=== PATIENT | male | born 1980 | race Two or more races ===

== ENCOUNTER 2024-12-20 15:17 | Inpatient (IN) | payer OTHER, MEDICAID ==
[2024-12-20] VITALS (7 sets, daily range): BP systolic 118–130; BP diastolic 80–94; PULSE 106–117; RESP 12–14; TEMP 37.4; O2SAT 98–99
[~2024-12-20] VITALS: Ht 160 cm; Wt 64.0 kg
[2024-12-20] MEDS: SODIUM CHLORIDE 0.9% (SEPSIS BOLUS) IV ONE (16:11)
[2024-12-20] MEDS: MORPHINE SULFATE 4 MG/ML INJ (FOR IV/IM USE) IV STA (16:18)
[2024-12-20] MEDS: ACETAMINOPHEN 325MG TABLET PO STA (16:18)
[2024-12-20] MEDS: ONDANSETRON HCL 4MG/2ML INJ IV STA (16:18)
[2024-12-20] MEDS: PIPERACILLIN/TAZO 3.375G/50ML 50 ML IV ONE (16:19)
[2024-12-20] MEDS: VANCOMYCIN 1G PREMIX 200 ML IV ONE (16:19)
[2024-12-20 16:44] LABS: MEAN CORPUSCULAR HEMOGLOBIN 31.1 pg (28.0-32.0); MEAN CORPUSCULAR HGB CONC 35.1 g/dL (31.0-37.0); MEAN CORPUSCULAR VOLUME 88.5 fL (80.0-94.0); PLATELET 644 x1000/uL (130-400); RED BLOOD CELL COUNT 4.18 mill/uL (4.7-6.1); RED CELL DISTRIBUTION WIDTH 12.3 % (11.6-14.6); WHITE BLOOD COUNT 13.1 x1000/uL (4.5-11.0)
[2024-12-20 16:47] LABS: DIFFERENTIAL COMMENT 1
[2024-12-20 16:52] LABS: BG DEOXYHEMOGLOBIN 2.7 % (0.0-5.0)
[2024-12-20 16:54] LABS: CHLORIDE 93 mEq/L (98-107); POTASSIUM 3.8 mEq/L (3.5-5.1); SODIUM 126 mEq/L (136-145)
[2024-12-20 16:55] LABS: CALCIUM 9.2 mg/dL (8.7-10.4); CARBON DIOXIDE 17 mEq/L (21-32)
[2024-12-20 17:00] LABS: CREATININE 1.2 mg/dL (0.6-1.3); UREA NITROGEN BLOOD 10 mg/dL (9-23)
[2024-12-20 17:01] LABS: PROTHROMBIN TIME 10.3 sec (9.6-11.0); TROPONIN I HIGH SENSITIVITY 8 ng/L (3.0-53)
[2024-12-20 17:06] LABS: GLUCOSE 484 mg/dL (70-105)
[2024-12-20 17:18] LABS: BETA HYDROXYBUTYRATE 5.8 mMol/L (0.0-0.3)
[2024-12-20 17:41] LABS: PLATELET ESTIMATE MARKEDLY INCREASED
[2024-12-20 18:45] LABS: TROPONIN I HIGH SENSITIVITY 7 ng/L (3.0-53)
[2024-12-20] MEDS ORDERED: INSULIN REGULAR (DRIP) 100 UNITS in SODIUM CHLORIDE 0.9% 99 ML IV SCH (19:15)
[2024-12-20] MEDS ORDERED: DEXTROSE 50% WATER 50ML SYRINGE IV PRN ×3 (19:15→21:15)
[2024-12-20] MEDS ORDERED: DEXT 5%/0.9% NACL 1,000 ML IV SCH (19:15)
[2024-12-20] MEDS ORDERED: KCL 20MEQ/100ML PREMIX 100 ML IV PRN (19:15)
[2024-12-20] MEDS ORDERED: SODIUM PHOSPHATE 15 MMOL in SODIUM CHLORIDE 0.9% 245 ML IV PRN (19:15)
[2024-12-20] MEDS: BLOOD SUGAR DIAGNOSTIC STRIP TEST SCH ×2 (19:15→20:15)
[2024-12-20] MEDS ORDERED: POTASSIUM CHLORIDE 40 MEQ in SODIUM CHLORIDE 0.9% 230 ML IV PRN ×2 (19:15→20:15)
[2024-12-20] MEDS ORDERED: MAGNESIUM 2 G PREMIX 50 ML IV PRN (19:15)
[2024-12-20] MEDS: SODIUM CHLORIDE 0.9% 1,000 ML IV SCH (19:15)
[2024-12-20] MEDS ORDERED: BLOOD SUGAR DIAGNOSTIC STRIP TEST PRN ×2 (19:15→20:15)
[2024-12-20 20:01] LABS: CLARITY URINE CLEAR (CLEAR); COLOR URINE YELLOW (YELLOW); GLUCOSE URINE 3+ (NEGATIVE); KETONES URINE 4+ (NEGATIVE); LEUKOCYTE ESTERASE URINE NEGATIVE (NEGATIVE); NITRITE URINE NEGATIVE (NEGATIVE); OCCULT BLOOD URINE 1+ (NEGATIVE); PH URINE 5.5 (4.5-8.0); PROTEIN URINE 1+ (NEGATIVE); SPECIFIC GRAVITY URINE 1.027 (1.005-1.030); UROBILINOGEN URINE 0.2 E.U./dL (0.2-1.0)
[2024-12-20 20:02] LABS: CHLORIDE 97 mEq/L (98-107); POTASSIUM 4.2 mEq/L (3.5-5.1); SODIUM 130 mEq/L (136-145)
[2024-12-20 20:03] LABS: CALCIUM 8.2 mg/dL (8.7-10.4); CARBON DIOXIDE 18 mEq/L (21-32)
[2024-12-20 20:08] LABS: UREA NITROGEN BLOOD 10 mg/dL (9-23)
[2024-12-20] MEDS ORDERED: ONDANSETRON HCL 4MG TABLET PO PRN (20:15)
[2024-12-20] MEDS ORDERED: IPRATROPIUM/ALBUTEROL 0.5-3(2.5)MG/3ML NEB NEB PRN (20:15)
[2024-12-20] MEDS: INSULIN REGULAR (HUMULIN R) 1000UNITS/10ML VIAL IV ONE (20:16)
[2024-12-20] MEDS ORDERED: LEVOFLOXACIN 500MG PREMIX 100 ML IV SCH (20:30)
[2024-12-20 20:40] LABS: GLUCOSE 455 mg/dL (70-105)
[2024-12-20 20:54] LABS: BG BASE EXCESS -4.6 mmol/L (-2.0-3.0); BG CARBOXYHEMOGLOBIN 0.7 % (0.5-1.5); BG DEOXYHEMOGLOBIN 3.6 % (0.0-5.0); BG FRACTION INSPIRED OXYGEN 21; BG HCO3 ACT 19.6 mmol/L (21.0-28.0); BG METHEMOGLOBIN 0.3 % (0.5-1.5); BG OXYGEN SATURATION 96.4 % (94.0-98.0); BG OXYHEMOGLOBIN 95.4 % (94.0-98.0); BG PCO2 33.6 mmHg (35.0-48.0); BG PH 7.383 (7.350-7.450); BG PO2 83.8 mmHg (83.0-108.0); BG SAMPLE SITE RIGHT RADIAL; BG TOTAL HEMOGLOBIN 14.2 g/dL (13.5-17.5); BG VENT MODE ROOM AIR
[2024-12-20 20:54] LABS: BACTERIA URINE TRACE; SQUAMOUS EPITHELIAL CELL URINE RARE /lpf (RARE/1+); WBC URINE 0-2 /hpf (0-2)
[2024-12-20] MEDS ORDERED: SODIUM CHLORIDE 0.9% 1,000 ML IV SCH (21:00)
[2024-12-20] MEDS ORDERED: CLONIDINE 0.1MG TABLET PO PRN (21:15)
[2024-12-20] MEDS ORDERED: DOCUSATE SODIUM 100MG CAPSULE PO PRN (21:15)
[2024-12-20] MEDS: FAMOTIDINE 20MG TABLET PO SCH (21:19)
[2024-12-20] MEDS: INSULIN REGULAR 100U/100ML PMX 100 ML IV SCH (21:21)
[2024-12-20] MEDS: KETOROLAC 15MG/ML VIAL IV PRN (21:27)
[2024-12-20 21:29] LABS: CARBON DIOXIDE 22 mEq/L (21-32); CHLORIDE 101 mEq/L (98-107); POTASSIUM 3.4 mEq/L (3.5-5.1); SODIUM 133 mEq/L (136-145)
[2024-12-20 21:30] LABS: CALCIUM 8.3 mg/dL (8.7-10.4)
[2024-12-20 21:34] LABS: CREATININE 0.9 mg/dL (0.6-1.3); GLUCOSE 309 mg/dL (70-105)
[2024-12-20 21:35] LABS: UREA NITROGEN BLOOD 9 mg/dL (9-23)
[2024-12-20 21:37] LABS: PHOSPHORUS 2.2 mg/dL (2.5-4.9)
[2024-12-20] MEDS ORDERED: PIPERACILLIN/TAZO 3.375G/50ML 50 ML IV SCH (22:00)
[2024-12-20] MEDS ORDERED: METRONIDAZOLE 500 MG PREMIX 100 ML IV SCH (22:00)
[2024-12-20] MEDS: KCL 20MEQ/100ML PREMIX 100 ML IV PRN (22:41)
[2024-12-20] MEDS: MAGNESIUM 2 G PREMIX 50 ML IV PRN (22:42)
[2024-12-20] MEDS: DEXT 5%/0.9% NACL 1,000 ML IV SCH (23:14)
[2024-12-21] VITALS (54 sets, daily range): BP systolic 107–156; BP diastolic 76–98; PULSE 101–144; RESP 8–19; TEMP 36.7–37.6; O2SAT 91–100
[2024-12-21 00:41] LABS: CREATINE KINASE MB FRACTION 1.3 ng/mL (0.5-3.6)
[2024-12-21 03:04] LABS: CHLORIDE 105 mEq/L (98-107); POTASSIUM 3.3 mEq/L (3.5-5.1); SODIUM 135 mEq/L (136-145)
[2024-12-21 03:05] LABS: CARBON DIOXIDE 24 mEq/L (21-32)
[2024-12-21 03:12] LABS: PHOSPHORUS 1.7 mg/dL (2.5-4.9)
[2024-12-21] MEDS: BLOOD SUGAR DIAGNOSTIC STRIP TEST SCH ×3 (04:23→17:26)
[2024-12-21] MEDS: SODIUM PHOSPHATE 15 MMOL in SODIUM CHLORIDE 0.9% 245 ML IV PRN (05:26)
[2024-12-21] MEDS: PIPERACILLIN/TAZO 3.375G/50ML 50 ML IV SCH (05:26)
[2024-12-21] MEDS: VANCOMYCIN 1GM PMX (XELLIA) 200 ML IV SCH ×2 (05:36→21:04)
[2024-12-21] MEDS ORDERED: BLOOD SUGAR DIAGNOSTIC STRIP TEST SCH (07:50)
[2024-12-21 08:42] LABS: BG BASE EXCESS -4.6 mmol/L (-2.0-3.0); BG CARBOXYHEMOGLOBIN 0.2 % (0.5-1.5); BG DEOXYHEMOGLOBIN 2.9 % (0.0-5.0); BG FLOW(L/min) 0 L/min; BG FRACTION INSPIRED OXYGEN 21; BG HCO3 ACT 19.4 mmol/L (21.0-28.0); BG OXYGEN SATURATION 97.1 % (94.0-98.0); BG OXYHEMOGLOBIN 96.9 % (94.0-98.0); BG PCO2 32.2 mmHg (35.0-48.0); BG PH 7.397 (7.350-7.450); BG PO2 91.4 mmHg (83.0-108.0); BG SAMPLE SITE RIGHT RADIAL; BG VENT MODE ROOM AIR
[2024-12-21 09:19] LABS: *AMPHETAMINES SCREEN URINE PRESUMPTIVE POSITIVE (NEGATIVE)
[2024-12-21 09:20] LABS: *BENZODIAZEPINES SCREEN URINE NEGATIVE (NEGATIVE)
[2024-12-21 09:21] LABS: *BARBITURATES SCREEN URINE NEGATIVE (NEGATIVE); *COCAINE SCREEN URINE NEGATIVE (NEGATIVE); CANNABINOID URINE SCREEN NEGATIVE (NEGATIVE); ECSTASY MDMA SCREEN URINE NEGATIVE (NEGATIVE); METHADONE URINE SCREEN NEGATIVE (NEGATIVE); OPIATES URINE SCREEN PRESUMPTIVE POSITIVE (NEGATIVE); PHENCYCLIDINE URINE SCREEN NEGATIVE (NEGATIVE)
[2024-12-21] MEDS: INSULIN GLARGINE 100 UNITS/ML SUBCUT SCH (09:40)
[2024-12-21] MEDS: INSULIN LISPRO 100 UNITS/ML SUBCUT SCH ×3 (12:30→17:32)
[2024-12-21] MEDS ORDERED: DEXTROSE 50% WATER 50ML SYRINGE IV PRN (15:00)
[2024-12-21 15:15] LABS: HEMATOCRIT. 35.4 % (42.0-52.0); HEMOGLOBIN. 12.1 g/dL (14.0-18.0); MEAN CORPUSCULAR HEMOGLOBIN 30.1 pg (28.0-32.0); MEAN CORPUSCULAR HGB CONC 34.1 g/dL (31.0-37.0); MEAN CORPUSCULAR VOLUME 88.2 fL (80.0-94.0); MEAN PLATELET VOLUME 6.5 fl (7.4-10.4); PLATELET 515 x1000/uL (130-400); RED BLOOD CELL COUNT 4.01 mill/uL (4.7-6.1); RED CELL DISTRIBUTION WIDTH 12.4 % (11.6-14.6); WHITE BLOOD COUNT 12.3 x1000/uL (4.5-11.0)
[2024-12-21 15:19] LABS: CHLORIDE 101 mEq/L (98-107); DIFFERENTIAL COMMENT 1; POTASSIUM 3.4 mEq/L (3.5-5.1); SODIUM 132 mEq/L (136-145)
[2024-12-21 15:20] LABS: CALCIUM 8.2 mg/dL (8.7-10.4); CARBON DIOXIDE 23 mEq/L (21-32)
[2024-12-21 15:25] LABS: CREATININE 0.6 mg/dL (0.6-1.3); GLUCOSE 308 mg/dL (70-105); TRIGLYCERIDE 81 mg/dL (0-150); UREA NITROGEN BLOOD < 5 mg/dL (9-23)
[2024-12-21 15:26] LABS: CREATINE KINASE MB FRACTION 0.8 ng/mL (0.5-3.6); LDL CHOLESTEROL 60 mg/dL (5-100)
[2024-12-21 15:27] LABS: ALANINE AMINOTRANSFERASE < 7 IU/L (10-49); ALBUMIN 3.3 g/dL (3.2-4.8); ASPARTATE AMINOTRANSFERASE 9 IU/L (<34); BILIRUBIN DIRECT < 0.1 mg/dL (<=3.0); CHOLESTEROL 132 mg/dL (<200); HDL CHOLESTEROL 70 mg/dL (>55); PHOSPHORUS 1.4 mg/dL (2.5-4.9)
[2024-12-21 15:28] LABS: BILIRUBIN TOTAL 0.3 mg/dL (0.1-1.0); PROTEIN TOTAL 6.3 g/dL (6.0-8.3)
[2024-12-21] MEDS ORDERED: NALOXONE HCL 0.4MG/ML VIAL IV PRN (15:30)
[2024-12-21 15:31] LABS: T4 FREE 1.07 ng/dL (0.89-1.76); THYROID STIMULATING HORMONE 1.08 uIU/mL (0.55-4.78)
[2024-12-21] MEDS: METOPROLOL TARTRATE 5MG/5ML VIAL IV NR (15:40)
[2024-12-21 16:23] LABS: GIANT PLATELETS FEW; PLATELET ESTIMATE SLIGHTLY INCREASED
[2024-12-21] MEDS: POTASSIUM PHOSPHATE 30 MMOL in SODIUM CHLORIDE 0.9% 490 ML IV SCH (20:39)
[2024-12-21] MEDS: HYDROCODONE/ACETAMINOPHEN 5/325MG TABLET PO PRN (21:22)
[2024-12-22] VITALS (49 sets, daily range): BP systolic 112–177; BP diastolic 76–107; PULSE 94–131; RESP 7–24; TEMP 36.6–38; O2SAT 90–100
[2024-12-22] MEDS: ACETAMINOPHEN 325MG TABLET PO PRN (04:03)
[2024-12-22 06:12] LABS: CHLORIDE 96 mEq/L (98-107); POTASSIUM 3.3 mEq/L (3.5-5.1); SODIUM 130 mEq/L (136-145)
[2024-12-22 06:13] LABS: CARBON DIOXIDE 26 mEq/L (21-32)
[2024-12-22 06:18] LABS: CREATININE 0.5 mg/dL (0.6-1.3); GLUCOSE 221 mg/dL (70-105)
[2024-12-22 06:19] LABS: UREA NITROGEN BLOOD 6 mg/dL (9-23)
[2024-12-22 06:28] LABS: HEMOGLOBIN 11.6 g/dL (14.0-18.0); MEAN CORPUSCULAR HEMOGLOBIN 30.4 pg (28.0-32.0); MEAN CORPUSCULAR HGB CONC 35.2 g/dL (31.0-37.0); MEAN CORPUSCULAR VOLUME 86.4 fL (80.0-94.0); PLATELET 497 x1000/uL (130-400); RED BLOOD CELL COUNT 3.82 mill/uL (4.7-6.1); RED CELL DISTRIBUTION WIDTH 12.4 % (11.6-14.6); WHITE BLOOD COUNT 10.4 x1000/uL (4.5-11.0)
[2024-12-22 06:57] LABS: THYROID STIMULATING HORMONE 1.86 uIU/mL (0.55-4.78)
[2024-12-22] MEDS ORDERED: LIDOCAINE HCL/EPINEPHRINE 1%-EPI 1:100,000 20ML VIAL INFIL SCH (07:30)
[2024-12-22 07:47] LABS: IRON 18 ug/dL (65-175)
[2024-12-22 07:50] LABS: TOTAL IRON BINDING CAPACITY 638 ug/dl (250-425)
[2024-12-22 08:24] LABS: FERRITIN 163 ng/mL (22-322); FOLIC ACID (FOLATE) SERUM 6.67 ng/mL (>5.38)
[2024-12-22 08:25] LABS: VITAMIN B12 SERUM 948 pg/mL (211-911)
[2024-12-22] MEDS ORDERED: POLYMYXIN B SULFATE 500000 UNITS/VIAL ONE (08:28)
[2024-12-22] MEDS: POTASSIUM CHLORIDE 20MEQ TABLET SR PO SCH (08:28)
[2024-12-22] MEDS ORDERED: VANCOMYCIN HCL 1GM VIAL ONE (08:29)
[2024-12-22] MEDS ORDERED: LIDOCAINE HCL/EPINEPHRINE 1%-EPI 1:100,000 20ML VIAL ONE (08:29)
[2024-12-22] MEDS: SODIUM CHLORIDE 0.9% 500 ML IV ONE (08:29)
[2024-12-22] MEDS ORDERED: KETAMINE HCL 50 MG/ML 10ML ONE (09:07)
[2024-12-22] MEDS: MAGNESIUM 4 G PREMIX 100 ML IV SCH (11:25)
[2024-12-22] MEDS: METOPROLOL TARTRATE 5MG/5ML VIAL IV SCH (12:47)
[2024-12-22] MEDS: VANCOMYCIN 1GM PMX (XELLIA) 200 ML IV SCH (13:34)
[2024-12-22] MEDS: FERROUS SULFATE 325MG TABLET PO SCH (18:09)
[2024-12-22] MEDS: INSULIN LISPRO 100 UNITS/ML SUBCUT SCH (18:10)
[2024-12-22] MEDS: AMLODIPINE 5MG TABLET PO SCH (18:41)
[2024-12-23] VITALS: BP 99/61; PULSE 112; RESP 20; TEMP 36.4; O2SAT 96
[2024-12-23 03:36] LABS: CARBON DIOXIDE 29 mEq/L (21-32); CHLORIDE 99 mEq/L (98-107); POTASSIUM 3.2 mEq/L (3.5-5.1); SODIUM 133 mEq/L (136-145)
[2024-12-23 03:37] LABS: CALCIUM 7.7 mg/dL (8.7-10.4)
[2024-12-23 03:41] LABS: CREATININE 0.5 mg/dL (0.6-1.3)
[2024-12-23 03:42] LABS: GLUCOSE 236 mg/dL (70-105); UREA NITROGEN BLOOD 6 mg/dL (9-23)
[2024-12-23 03:52] LABS: HEMOGLOBIN 10.7 g/dL (14.0-18.0); MEAN CORPUSCULAR HEMOGLOBIN 30.5 pg (28.0-32.0); MEAN CORPUSCULAR HGB CONC 35.6 g/dL (31.0-37.0); MEAN CORPUSCULAR VOLUME 85.8 fL (80.0-94.0); PLATELET 423 x1000/uL (130-400); RED CELL DISTRIBUTION WIDTH 12.2 % (11.6-14.6); WHITE BLOOD COUNT 9.1 x1000/uL (4.5-11.0)
[2024-12-23 04:00] VITALS: BP 114/71; PULSE 105; RESP 20; TEMP 36.3; O2SAT 98
[2024-12-23 08:00] VITALS: BP 115/77; PULSE 103; RESP 20; TEMP 36.6; O2SAT 98
[2024-12-23] MEDS: POTASSIUM CHLORIDE 20MEQ TABLET SR PO SCH (09:40)
[2024-12-23] MEDS: INSULIN GLARGINE 100 UNITS/ML SUBCUT SCH (09:44)
[2024-12-23 16:00] VITALS: BP 96/63; PULSE 100; RESP 20; TEMP 36.7; O2SAT 98
[2024-12-23] MEDS: PANTOT AC/MIN OIL/PET HY-PHL OINT (AQUAPHOR) TOP SCH (17:40)
[2024-12-23 20:00] VITALS: BP 94/59; PULSE 107; RESP 18; TEMP 36.4; O2SAT 95
[2024-12-24] VITALS: BP 123/92; PULSE 115; RESP 20; TEMP 36.8; O2SAT 96
[2024-12-24 04:00] VITALS: BP 100/64; PULSE 107; RESP 19; TEMP 36.4; O2SAT 94
[2024-12-24 06:16] LABS: HEMATOCRIT 32.1 % (42.0-52.0); HEMOGLOBIN 11.1 g/dL (14.0-18.0); MEAN CORPUSCULAR HEMOGLOBIN 30.1 pg (28.0-32.0); MEAN CORPUSCULAR HGB CONC 34.7 g/dL (31.0-37.0); MEAN CORPUSCULAR VOLUME 86.6 fL (80.0-94.0); PLATELET 467 x1000/uL (130-400); RED CELL DISTRIBUTION WIDTH 12.6 % (11.6-14.6); WHITE BLOOD COUNT 7.2 x1000/uL (4.5-11.0)
[2024-12-24 06:34] LABS: CARBON DIOXIDE 30 mEq/L (21-32); CHLORIDE 95 mEq/L (98-107); POTASSIUM 4.3 mEq/L (3.5-5.1); SODIUM 131 mEq/L (136-145)
[2024-12-24 06:35] LABS: CALCIUM 8.7 mg/dL (8.7-10.4)
[2024-12-24 06:39] LABS: CREATININE 0.7 mg/dL (0.6-1.3); GLUCOSE 350 mg/dL (70-105)
[2024-12-24 06:40] LABS: UREA NITROGEN BLOOD 9 mg/dL (9-23)
[2024-12-24 08:00] VITALS: BP 102/68; PULSE 104; RESP 18; TEMP 37.1; O2SAT 99
[2024-12-24] MEDS: MAGNESIUM 2 G PREMIX 50 ML IV NR (09:51)
[2024-12-24] MEDS ORDERED: INSULIN GLARGINE 100 UNITS/ML SUBCUT SCH (10:00)
[2024-12-24] MEDS: INSULIN GLARGINE 100 UNITS/ML SUBCUT SCH (10:21)
[2024-12-24 12:00] VITALS: BP 101/72; PULSE 103; RESP 20; TEMP 36.6; O2SAT 96
[2024-12-24 16:00] VITALS: BP 105/76; PULSE 110; RESP 18; TEMP 36.6; O2SAT 97
[2024-12-24] MEDS ORDERED: CLINDAMYCIN 600 MG in DEXTROSE 5% WATER 50 ML IV SCH (18:00)
[2024-12-24] MEDS: CLINDAMYCIN 600MG PREMIX 50 ML IV SCH (18:39)
[2024-12-24] MEDS: INSULIN LISPRO 100 UNITS/ML SUBCUT SCH (18:39)
[2024-12-24 20:00] VITALS: BP 102/69; PULSE 110; RESP 16; TEMP 36.3; O2SAT 100
[2024-12-25] VITALS: BP 96/63; PULSE 104; RESP 20; TEMP 36.2; O2SAT 100
[2024-12-25 04:00] VITALS: BP 97/69; PULSE 98; RESP 18; TEMP 36.3; O2SAT 98
[2024-12-25 06:28] LABS: HEMATOCRIT 33.5 % (42.0-52.0); HEMOGLOBIN 11.5 g/dL (14.0-18.0); MEAN CORPUSCULAR HEMOGLOBIN 29.9 pg (28.0-32.0); MEAN CORPUSCULAR HGB CONC 34.4 g/dL (31.0-37.0); PLATELET 519 x1000/uL (130-400); RED BLOOD CELL COUNT 3.85 mill/uL (4.7-6.1); RED CELL DISTRIBUTION WIDTH 12.3 % (11.6-14.6); WHITE BLOOD COUNT 5.9 x1000/uL (4.5-11.0)
[2024-12-25 06:33] LABS: CHLORIDE 96 mEq/L (98-107); POTASSIUM 4.3 mEq/L (3.5-5.1); SODIUM 132 mEq/L (136-145)
[2024-12-25 06:34] LABS: CARBON DIOXIDE 30 mEq/L (21-32)
[2024-12-25 06:35] LABS: CALCIUM 8.2 mg/dL (8.7-10.4)
[2024-12-25 06:36] LABS: INR 0.9; PROTHROMBIN TIME 10.2 sec (9.6-11.0)
[2024-12-25 06:39] LABS: CREATININE 0.7 mg/dL (0.6-1.3); GLUCOSE 317 mg/dL (70-105)
[2024-12-25 06:40] LABS: UREA NITROGEN BLOOD 11 mg/dL (9-23)
[2024-12-25 06:42] LABS: PHOSPHORUS 4.8 mg/dL (2.5-4.9)
[2024-12-25] MEDS ORDERED: LIDOCAINE HCL/EPINEPHRINE 1%-EPI 1:100,000 20ML VIAL ONE (07:14)
[2024-12-25] MEDS ORDERED: POLYMYXIN B SULFATE 500000 UNITS/VIAL ONE (07:14)
[2024-12-25] MEDS ORDERED: LIDOCAINE HCL 1% 10 MG/ML 10ML VIAL ONE (07:15)
[2024-12-25] MEDS ORDERED: BUPIVACAINE HCL/PF 0.5% (5MG/ML) 10ML ONE (07:15)
[2024-12-25 08:01] VITALS: BP 106/70; PULSE 104; RESP 20; TEMP 36.6; O2SAT 100
[2024-12-25] MEDS: INSULIN GLARGINE 100 UNITS/ML SUBCUT SCH ×2 (10:00→22:48)
[2024-12-25] MEDS ORDERED: PROPOFOL 200MG/20ML VIAL IV ONE (10:40)
[2024-12-25] MEDS ORDERED: MIDAZOLAM HCL 2 MG/2 ML VIAL ONE ×2 (10:41)
[2024-12-25] MEDS ORDERED: FENTANYL CITRATE/PF 50MCG/ML 2ML VIAL ONE (10:41)
[2024-12-25] MEDS ORDERED: VANCOMYCIN HCL 1GM VIAL ONE (11:04)
[2024-12-25] MEDS ORDERED: LIDOCAINE HCL 1% 20ML VIAL ONE (11:12)
[2024-12-25] MEDS ORDERED: LABETALOL 5MG/ML 4ML INJ IV PRN (11:45)
[2024-12-25] MEDS ORDERED: MEPERIDINE HCL/PF 25MG/ML CPJ IV PRN (11:45)
[2024-12-25] MEDS ORDERED: HYDROMORPHONE HCL/PF 1MG/ML INJ IV PRN (11:45)
[2024-12-25] MEDS ORDERED: ONDANSETRON HCL 4MG/2ML INJ IV PRN (11:45)
[2024-12-25] MEDS: SODIUM CHLORIDE 0.9% 1,000 ML IV ONE (11:45)
[2024-12-25 12:30] VITALS: BP 118/84; PULSE 104; RESP 22; TEMP 36.6; O2SAT 98
[2024-12-25] MEDS: LACTOBACILLUS RHAMNOSUS GG CAP PO SCH (13:36)
[2024-12-25] MEDS: INSULIN LISPRO 100 UNITS/ML SUBCUT SCH (13:47)
[2024-12-25 16:30] VITALS: BP 110/70; PULSE 122; RESP 18; TEMP 37; O2SAT 97
[2024-12-25 20:00] VITALS: BP 115/84; PULSE 100; RESP 19; TEMP 36.2; O2SAT 98
[2024-12-26] VITALS: BP 104/72; PULSE 114; RESP 19; TEMP 35.9; O2SAT 99
[2024-12-26 05:30] VITALS: BP 103/70; PULSE 90; RESP 14; TEMP 36.4; O2SAT 98
[2024-12-26] MEDS: INSULIN LISPRO 100 UNITS/ML SUBCUT SCH ×3 (06:45→17:00)
[2024-12-26] MEDS: INSULIN GLARGINE 100 UNITS/ML SUBCUT SCH ×2 (06:45→22:29)
[2024-12-26 07:48] LABS: HEMATOCRIT 31.3 % (42.0-52.0); HEMOGLOBIN 10.7 g/dL (14.0-18.0); MEAN CORPUSCULAR HEMOGLOBIN 30.4 pg (28.0-32.0); MEAN CORPUSCULAR VOLUME 89.4 fL (80.0-94.0); PLATELET 553 x1000/uL (130-400); RED CELL DISTRIBUTION WIDTH 12.4 % (11.6-14.6); WHITE BLOOD COUNT 6.1 x1000/uL (4.5-11.0)
[2024-12-26 07:59] LABS: CHLORIDE 97 mEq/L (98-107); SODIUM 131 mEq/L (136-145)
[2024-12-26 08:00] VITALS: BP 107/81; PULSE 103; RESP 18; TEMP 36.3; O2SAT 96
[2024-12-26 08:00] LABS: CARBON DIOXIDE 26 mEq/L (21-32)
[2024-12-26 08:01] LABS: CALCIUM 8.7 mg/dL (8.7-10.4)
[2024-12-26 08:05] LABS: CREATININE 0.8 mg/dL (0.6-1.3)
[2024-12-26 08:06] LABS: UREA NITROGEN BLOOD 17 mg/dL (9-23)
[2024-12-26 10:03] LABS: GLUCOSE 482 mg/dL (70-105)
[2024-12-26 12:00] VITALS: BP 113/78; PULSE 105; RESP 17; TEMP 36.6; O2SAT 96
[2024-12-26 16:00] VITALS: BP 114/82; PULSE 94; RESP 16; TEMP 36.6; O2SAT 97
[2024-12-26 20:00] VITALS: BP 117/84; PULSE 101; RESP 20; TEMP 36.3; O2SAT 97
[2024-12-26] MEDS: ACETAMINOPHEN 325MG TABLET PO PRN (21:19)
[2024-12-27] VITALS: BP 111/77; PULSE 77; RESP 18; TEMP 36; O2SAT 98
[2024-12-27 04:00] VITALS: BP 113/78; PULSE 92; RESP 18; TEMP 37.1; O2SAT 97
[2024-12-27 07:23] LABS: HEMATOCRIT 30.9 % (42.0-52.0); HEMOGLOBIN 10.7 g/dL (14.0-18.0); MEAN CORPUSCULAR HEMOGLOBIN 30.1 pg (28.0-32.0); MEAN CORPUSCULAR HGB CONC 34.6 g/dL (31.0-37.0); PLATELET 586 x1000/uL (130-400); RED BLOOD CELL COUNT 3.55 mill/uL (4.7-6.1); RED CELL DISTRIBUTION WIDTH 12.6 % (11.6-14.6); WHITE BLOOD COUNT 6.1 x1000/uL (4.5-11.0)
[2024-12-27 07:32] LABS: CARBON DIOXIDE 28 mEq/L (21-32); CHLORIDE 100 mEq/L (98-107); POTASSIUM 3.7 mEq/L (3.5-5.1); SODIUM 137 mEq/L (136-145)
[2024-12-27 07:33] LABS: CALCIUM 8.6 mg/dL (8.7-10.4)
[2024-12-27 07:37] LABS: CREATININE 0.7 mg/dL (0.6-1.3)
[2024-12-27 07:38] LABS: UREA NITROGEN BLOOD 14 mg/dL (9-23)
[2024-12-27 07:40] LABS: PHOSPHORUS 3.7 mg/dL (2.5-4.9)
[2024-12-27 07:48] LABS: GLUCOSE 209 mg/dL (70-105)
[2024-12-27 08:00] VITALS: BP 108/73; RESP 17; TEMP 36.5; O2SAT 98
[2024-12-27] MEDS ORDERED: AM250 PO (11:36)
[2024-12-27] MEDS ORDERED: FERR-63 PO (11:36)
[2024-12-27] MEDS ORDERED: INSU100I28 SQ (11:36)
[2024-12-27] MEDS ORDERED: TOPUD MT (11:36)
[2024-12-27] MEDS ORDERED: INSU100I53 SQ (11:36)
[2024-12-27 12:00] VITALS: BP 110/70; RESP 18; TEMP 36.3; O2SAT 99
[2024-12-27 12:02] VITALS: BP 110/71; PULSE 74; TEMP 97.8; O2SAT 98
== END 2024-12-27 15:41 | disposition home or self-care (01) | DRG 710 ==
LOC: ER 15:17 → CVICU 19:09 → EDBEDREQSVC 19:10 → EDBEDREQ 19:10 → ENRESERV 20:50 → 8WST 12-22 19:06 → 8EST 12-26 05:12
PROVIDERS: ADMIT Internal Medicine; ATTEND Internal Medicine
PROC: 0JBJ0ZZ Excision of Right Hand Subcutaneous Tissue and Fascia, Open Approach (ICD-10-PCS; principal; 2024-12-22)
PROC: 0X6S0Z1 Detachment at Right Ring Finger, High, Open Approach (ICD-10-PCS; 2024-12-25)
DX: A41.9 Sepsis, unspecified organism (principal); E11.10 Type 2 diabetes mellitus with ketoacidosis without coma; E83.39 Other disorders of phosphorus metabolism; E87.1 Hypo-osmolality and hyponatremia; E87.8 Other disorders of electrolyte and fluid balance, not elsewhere classified; F15.10 Other stimulant abuse, uncomplicated; D50.9 Iron deficiency anemia, unspecified; D75.838 Other thrombocytosis; E83.42 Hypomagnesemia; E86.1 Hypovolemia; L03.011 Cellulitis of right finger; I10 Essential (primary) hypertension; E87.6 Hypokalemia; L02.511 Cutaneous abscess of right hand; L03.113 Cellulitis of right upper limb; K02.9 Dental caries, unspecified; F17.210 Nicotine dependence, cigarettes, uncomplicated; S63.282A Dislocation of proximal interphalangeal joint of right middle finger, initial encounter; X58.XXXA Exposure to other specified factors, initial encounter; Z91.199 Patient's noncompliance with other medical treatment and regimen due to unspecified reason; Z82.49 Family history of ischemic heart disease and other diseases of the circulatory system; Z79.4 Long term (current) use of insulin; Y93.89 Activity, other specified; Y92.89 Other specified places as the place of occurrence of the external cause; Y99.8 Other external cause status
CPT/HCPCS: 36415; 36600; 71045; 73140; 80048; 80051; 80061; 80076; 80202; 80305; 81003; 82010; 82375; 82550; 82553; 82607; 82728; 82746; 82803; 82805; 82962; 83036; 83540; 83550; 83605; 83735; 83930; 84100; 84145; 84439; 84443; 84484; 85025; 85027; 87070; 87075; 87077; 87186; 88305; 93005; 93970; 99291; A4606; J0665; J1815; J1885; J2003; J2004; J2250; J2270; J2405; J2543; J2704; J3010; J3370; J3475; J3480; J3490; J7030; J7040; J7042; J7050; J7060